=== PATIENT | male | born 1960 | race Caucasian/White ===

== ENCOUNTER 2023-07-02 10:37 | Day surgery (SDC) | payer OTHER ==
[2023-07-01 14:57] VITALS: BMI 30.1
[~2023-07-02 10:37] MED LIST: Amphotericin B(Fungizone) 0.75 MG in Sterile Water 10 ML L EYE SCH; CEFTAZIDIME FORTAZ FS SCH; EPINEPHrine 0.3 MG in Ophthalmic Irrigation Solution 500 ML IRR SCH; SODIUM CHLORIDE 0.9% FS SCH; Vancomycin 100 MG, Sodium Chloride 0.9% 10 ML FS SCH
[2023-07-02] MEDS ORDERED: Cyclopentolate 2% Opth Drop 15 ML BOT ONE (11:47)
[2023-07-02] MEDS ORDERED: PHENYLephrine 2.5% Ophth Soln 15 ml Bottle ONE (11:48)
[2023-07-02] MEDS ORDERED: Midazolam HCl 2 mg/2 ml Vial ONE (13:52)
[2023-07-02] MEDS ORDERED: fentaNYL 50 mcg/mL 1 mL Vial ONE (13:52)
[2023-07-02] MEDS ORDERED: Bupivacaine 0.75% 10 ML VIAL ONE (14:16)
[2023-07-02] MEDS ORDERED: Maxitrol 0.1% Opth Oint 3.5 GM TUBE ONE (14:16)
[2023-07-02] MEDS ORDERED: Lidocaine 1% PF 5 ML VIAL ONE (14:16)
[2023-07-02] MEDS ORDERED: Lidocaine 4% PF 5 ML AMP ONE (14:16)
[2023-07-02] MEDS ORDERED: CEFAZOLIN 1 GM VIAL ONE (14:16)
[2023-07-02] MEDS ORDERED: PROPOFOL 200 MG/20 ML VIAL ONE (14:16)
[2023-07-10 18:14] LABS: Fungus Stain Final report (.)
== END 2023-07-02 15:35 | disposition home or self-care (01) ==
LOC: SDC 10:37
PROVIDERS: ATTEND Ophthalmology Retina Specialist
PROC: 08NF3ZZ Release Left Retina, Percutaneous Approach (ICD-10-PCS; principal; 2023-07-02)
PROC: 08T53ZZ Resection of Left Vitreous, Percutaneous Approach (ICD-10-PCS; principal; 2023-07-02)
DX: H44.002 Unspecified purulent endophthalmitis, left eye (principal)
CPT/HCPCS: 87070; 87102; 87205; 87206; J0171; J0690; J0713; J2250; J2704; J3010; J3371; J3490

== ENCOUNTER 2023-10-20 06:34 | Day surgery (SDC) | payer OTHER ==
[2023-10-19 14:19] VITALS: BMI 31.5
[~2023-10-20 06:34] MED LIST changes: -Amphotericin B(Fungizone) 0.75 MG in Sterile Water 10 ML L EYE SCH; -CEFTAZIDIME FORTAZ FS SCH; -SODIUM CHLORIDE 0.9% FS SCH; -Vancomycin 100 MG, Sodium Chloride 0.9% 10 ML FS SCH
[2023-10-20] MEDS ORDERED: Cyclopentolate W/ Phenylephrin 5 ML BOT ONE (07:00)
[2023-10-20] MEDS ORDERED: Midazolam HCl 2 mg/2 ml Vial ONE (08:20)
[2023-10-20] MEDS ORDERED: fentaNYL 50 mcg/mL 1 mL Vial ONE (08:20)
[2023-10-20] MEDS ORDERED: Triamcinolone 40 MG/ML VIAL ONE (08:46)
[2023-10-20] MEDS ORDERED: Bupivacaine 0.75% 10 ML VIAL ONE (08:46)
[2023-10-20] MEDS ORDERED: Maxitrol 0.1% Opth Oint 3.5 GM TUBE ONE (08:46)
[2023-10-20] MEDS ORDERED: PROPOFOL 200 MG/20 ML VIAL ONE (08:46)
[2023-10-20] MEDS ORDERED: Lidocaine 4% PF 5 ML AMP ONE (08:46)
[2023-10-20] MEDS ORDERED: CEFAZOLIN 1 GM VIAL ONE (08:46)
== END 2023-10-20 10:00 | disposition home or self-care (01) ==
LOC: SDC 06:34
PROVIDERS: ATTEND Ophthalmology Retina Specialist
PROC: 08N53ZZ Release Left Vitreous, Percutaneous Approach (ICD-10-PCS; principal; 2023-10-20)
DX: H43.392 Other vitreous opacities, left eye (principal)
CPT/HCPCS: J0171; J0690; J2250; J2704; J3010; J3301; J3490

== ENCOUNTER 2024-05-27 14:00 | Day surgery (SDC) | payer OTHER ==
[2024-05-27] MEDS ORDERED: Cyclopentolate 1% Opth Drop 2 ML BOT ONE (14:58)
[2024-05-27] MEDS ORDERED: PHENYLephrine 2.5% Ophth Soln 15 ml Bottle ONE (14:58)
[2024-05-27] MEDS ORDERED: Midazolam HCl 2 mg/2 ml Vial ONE (15:33)
[2024-05-27] MEDS ORDERED: PROPOFOL 20 ML ONE ×2 (15:33→16:00)
[2024-05-27] MEDS ORDERED: fentaNYL 50 mcg/mL 1 mL Vial ONE (15:37)
[2024-05-27] MEDS ORDERED: fentaNYL PF 100 MCG/2 ML SYRINGE ONE (15:38)
[2024-05-27] MEDS ORDERED: Lidocaine 4% PF 5 ML AMP ONE (16:12)
[2024-05-27] MEDS ORDERED: Maxitrol 0.1% Opth Oint 3.5 GM TUBE ONE (16:12)
[2024-05-27] MEDS ORDERED: CEFAZOLIN 1 GM VIAL ONE (16:12)
[2024-05-27] MEDS ORDERED: Lidocaine 1% PF 5 ML VIAL ONE (16:12)
[2024-05-27] MEDS ORDERED: Bupivacaine 0.75% 10 ML VIAL ONE (16:12)
[2024-05-27] MEDS ORDERED: Triamcinolone 40 MG/ML VIAL ONE (16:12)
== END 2024-05-27 17:30 | disposition home or self-care (01) ==
LOC: SDC 14:00
PROVIDERS: ATTEND Ophthalmology Retina Specialist
PROC: 08U13JZ Supplement of Left Eye with Synthetic Substitute, Percutaneous Approach (ICD-10-PCS; principal; 2024-05-27)
PROC: 08T53ZZ Resection of Left Vitreous, Percutaneous Approach (ICD-10-PCS; principal; 2024-05-27)
DX: H33.022 Retinal detachment with multiple breaks, left eye (principal)
CPT/HCPCS: 67025; J0171; J0690; J2250; J2704; J3010; J3301; J3490

== ENCOUNTER 2024-10-18 10:49 | Day surgery (SDC) | payer OTHER ==
[2024-10-17 14:04] VITALS: BMI 32.1
[2024-10-18] MEDS ORDERED: PHENYLephrine 2.5% Ophth Soln 15 ml Bottle ONE (11:47)
[2024-10-18] MEDS ORDERED: Cyclopentolate 1% Opth Drop 2 ML BOT ONE (11:47)
[2024-10-18] MEDS ORDERED: fentaNYL 50 mcg/mL 1 mL Vial ONE (11:56)
[2024-10-18] MEDS ORDERED: PROPOFOL 20 ML ONE (11:56)
[2024-10-18] MEDS ORDERED: Midazolam HCl 2 mg/2 ml Vial ONE (11:56)
[2024-10-18] MEDS ORDERED: Lidocaine 1% PF 5 ML VIAL ONE ×2 (11:56→13:34)
[2024-10-18] MEDS ORDERED: Bupivacaine 0.75% 10 ML VIAL ONE (13:34)
[2024-10-18] MEDS ORDERED: Maxitrol 0.1% Opth Oint 3.5 GM TUBE ONE (13:34)
[2024-10-18] MEDS ORDERED: Lidocaine 4% PF 5 ML AMP ONE (13:34)
[2024-10-18] MEDS ORDERED: Indocyanine Green 25 MG/10 ML VIAL ONE (13:34)
[2024-10-18] MEDS ORDERED: CEFAZOLIN 1 GM VIAL ONE (13:34)
[2024-10-18] MEDS ORDERED: Triamcinolone 40 MG/ML VIAL ONE (13:34)
== END 2024-10-18 15:10 | disposition home or self-care (01) ==
LOC: SDC 10:49
PROVIDERS: ATTEND Ophthalmology Retina Specialist
PROC: 08T53ZZ Resection of Left Vitreous, Percutaneous Approach (ICD-10-PCS; principal; 2024-10-18)
DX: H35.372 Puckering of macula, left eye (principal); H33.022 Retinal detachment with multiple breaks, left eye
CPT/HCPCS: 67025; J0171; J0690; J2250; J2704; J3010; J3301; J3490